=== PATIENT | female | born 1935 | race African-American/Black ===

== ENCOUNTER 2017-09-09 08:14 | Emergency (ER) | payer MEDICARE, BC ==
[~2017-09-09] VITALS: Ht 162.6 cm; Wt 55.0 kg
[~2017-09-09 08:14] MED LIST: DOCU-138 PO; HYDR-523 PO; LIPITOR PO; LOSA50TA3 PO
[2017-09-09] MEDS ORDERED: ONDANSETRON HCL 4MG/2ML VIAL IV STA (08:23)
[2017-09-09] MEDS ORDERED: MORPHINE SULFATE 4 MG/ML CPJ (NOT FOR IM USE) IV STA (08:23)
[2017-09-09] MEDS ORDERED: SODIUM CHLORIDE 0.9% 1,000 ML IV ONE (08:23)
[2017-09-09 09:04] LABS: BASOPHILS % 0.6 % (0.0-2.0); EOSINOPHILS % 2.5 % (0.0-5.0); HEMATOCRIT. 41.2 % (36.0-48.0); HEMOGLOBIN. 13.3 g/dL (12.0-16.0); LYMPHOCYTES % 20.6 % (20.0-50.0); MEAN CORPUSCULAR HEMOGLOBIN 27.7 pg (28.0-32.0); MEAN CORPUSCULAR VOLUME 85.7 fL (81.0-99.0); MEAN PLATELET VOLUME 9.7 fl (7.4-10.4); MONOCYTES % 8.3 % (2.0-8.0); PLATELET 153 x1000/uL (130-400); RED BLOOD CELL COUNT 4.81 mill/uL (4.2-5.4); RED CELL DISTRIBUTION WIDTH 14.9 % (11.6-14.6)
[2017-09-09 09:09] LABS: PROTHROMBIN TIME 10.7 sec (9.4-11.6)
[2017-09-09 09:20] LABS: CARBON DIOXIDE 28 mEq/L (21-32); CHLORIDE 108 mEq/L (98-107); TROPONIN I < 0.02 ng/mL (0.00-0.04)
[2017-09-09 09:56] LABS: PLATELET ESTIMATE NORMAL
[2017-09-09 10:46] LABS: CLARITY URINE CLEAR (CLEAR); COLOR URINE YELLOW (YELLOW); KETONES URINE NEGATIVE (NEGATIVE); LEUKOCYTE ESTERASE URINE TRACE (NEGATIVE); NITRITE URINE NEGATIVE (NEGATIVE); OCCULT BLOOD URINE NEGATIVE (NEGATIVE); PROTEIN URINE NEGATIVE (NEGATIVE); SPECIFIC GRAVITY URINE 1.009 (1.005-1.030); UROBILINOGEN URINE 0.2 E.U./dL (0.2-1.0)
[2017-09-09 10:48] VITALS: BP 139/77
== END 2017-09-09 10:53 | disposition home or self-care (01) ==
LOC: ER 08:26 → CANBEDREQ 11:20
DX: M25.551 Pain in right hip (principal); W18.39XA Other fall on same level, initial encounter; Y93.89 Activity, other specified; Y92.89 Other specified places as the place of occurrence of the external cause; I10 Essential (primary) hypertension; F03.90 Unspecified dementia, unspecified severity, without behavioral disturbance, psychotic disturbance, mood disturbance, and anxiety; Z88.0 Allergy status to penicillin
CPT/HCPCS: 36415; 71010; 73502; 73552; 80053; 81001; 83880; 84484; 85025; 85610; 86850; 86900; 86901; 87077; 87086; 93005; 96360; 96361; 99285; J2270; J7030; J2405

== ENCOUNTER 2018-07-29 14:52 | Emergency (ER) | payer MEDICARE, BC ==
[~2018-07-29] VITALS: Ht 157.5 cm; Wt 48.0 kg
[2018-07-29 17:59] LABS: BASOPHILS % 0.6 % (0.0-2.0); EOSINOPHILS % 0.9 % (0.0-5.0); HEMATOCRIT. 43.1 % (36.0-48.0); HEMOGLOBIN. 13.9 g/dL (12.0-16.0); MEAN CORPUSCULAR HEMOGLOBIN 27.8 pg (28.0-32.0); MEAN CORPUSCULAR VOLUME 86.1 fL (81.0-99.0); MEAN PLATELET VOLUME 8.7 fl (7.4-10.4); MONOCYTES % 11.9 % (2.0-8.0); NEUTROPHILS % 70.6 % (40.0-76.0); PLATELET 335 x1000/uL (130-400); RED CELL DISTRIBUTION WIDTH 14.3 % (11.6-14.6)
[2018-07-29 18:14] LABS: CHLORIDE 105 mEq/L (98-107)
[2018-07-29 20:09] VITALS: BP 124/64
== END 2018-07-29 20:09 | disposition home or self-care (01) ==
LOC: ER 14:52
DX: R05 Cough (principal); M79.89 Other specified soft tissue disorders; I10 Essential (primary) hypertension; F03.90 Unspecified dementia, unspecified severity, without behavioral disturbance, psychotic disturbance, mood disturbance, and anxiety; Z90.710 Acquired absence of both cervix and uterus; Z88.0 Allergy status to penicillin; Z88.2 Allergy status to sulfonamides
CPT/HCPCS: 36415; 71045; 83880; 84484; 93005; 93970; 99285